=== PATIENT | male | born 1980 | race Caucasian/White ===

== ENCOUNTER 2023-05-29 09:38 | Emergency (ER) | payer OTHER, SELFPAY ==
--- NOTE | ~2023-05-29 | XR_ITS ---
EXAMINATION: XR hand LT min 3V DATE: 05/29/2023 10:21 INDICATION: Left hand injury and pain. TECHNIQUE: 3 views of left hand were obtained. COMPARISON: None. FINDINGS: Bone alignment is normal. No acute fracture. There is an old healed fracture of fifth metac arpal. There is mild osteoarthritis of first metacarpophalangeal joint and first interphalangeal join t. IMPRESSION: 1. No acute fracture. Reviewed, dictated and finalized at location E. IMPRESSION: 1. No acute fracture.
--- NOTE | ~2023-05-29 | XR_ITS ---
EXAMINATION: XR wrist LT min 3V DATE: 05/29/2023 10:21 INDICATION: Left wrist injury and pain. TECHNIQUE: 4 views of left wrist were obtained. COMPARISON: None. FINDINGS: Bone alignment is normal. No acute fracture. There is an old healed fracture of fifth metac arpal. Joint spaces are normal. IMPRESSION: 1. No acute fracture. Reviewed, dictated and finalized at location E. IMPRESSION: 1. No acute fracture.
--- NOTE | ~2023-05-29 | XR_ITS ---
EXAMINATION: 1. XR hand RT min 3V 2. XR wrist RT min 3V DATE: 05/29/2023 10:21 INDICATION: Right wrist and hand pain. TECHNIQUE: 3 views of right hand and 4 views of right wrist were obtained. COMPARISON: None. FINDINGS: RIGHT HAND: Bone alignment is normal. There is a nondisplaced fracture of distal radius. There are ol d healed fractures of first and fifth metacarpals. There is mild osteoarthritis of triscaphe joint, f irst, fourth, and fifth carpometacarpal joints, and some of the interphalangeal joints. There is mode rate osteoarthritis of first metacarpophalangeal joint. There is a calcification palmar to base of fo urth middle phalanx. RIGHT WRIST: Bone alignment is normal. There is a fracture of distal radius with involvement of the d istal articular surface in near-anatomic alignment. There is mild osteoarthritis of radiolunate joint . IMPRESSION: 1. Nondisplaced fracture of distal radius. 2. Polyarticular osteoarthritis. 3. Calcification palmar to base of fourth middle phalanx which may be an acute avulsion fracture or a chronic finding. Correlate for focal tenderness. Reviewed, dictated and finalized at location E. IMPRESSION: 1. Nondisplaced fracture of distal radius. 2. Polyarticular osteoarthritis. 3. Calcification palmar to base of fourth middle phalanx which may be an acute avulsion fracture or a chronic finding. Correlate for focal tenderness.
--- NOTE | ~2023-05-29 | XR_ITS ---
EXAMINATION: XR forearm RT 2V DATE: 05/29/2023 10:20 INDICATION: Right wrist pain. TECHNIQUE: 2 views of right forearm were obtained. COMPARISON: None. FINDINGS: Bone alignment is normal. There is a nondisplaced fracture of distal radius involving the d istal articular surface. There is mild osteoarthritis of triscaphe joint and first carpometacarpal livia int. 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 No elbow joint effusion. IMPRESSION: 1. Fracture of distal radius. Reviewed, dictated and finalized at location E.
[2023-05-29 09:40] VITALS: BP 143/90; PULSE 83; RESP 18; TEMP 36.9; O2SAT 98
[2023-05-29] MEDS: KETOROLAC (*BKC) 60 MG/2 ML VIAL IM (09:59)
[2023-05-29] MEDS: TETANUS,DIPHTHERIA,AC PERTUSSIS ADULT 0.5 ML (ADACEL) IM (09:59)
--- NOTE | 2023-05-29 10:46 | ED.UPPEXIN ---
HPI - Extremity Injury (Upper) General Chief Complaint: Extremity Injury, Upper Stated Complaint: hand injury Time Seen by Provider: 05/29/23 09:46 Source: patient and family Mode of arrival: ambulatory Limitations: no limitations History of Present Illness HPI narrative: this is 42 year male that presents with bilateral hand and right forearm pain after he had a episode of bingeing on take chemo and inadvertently started punching a tree causing abrasions to knuckles on both hands with swelling, the right hand and wrist and forearm show more prominent swelling and bruising, with some good range of motion although limited secondary to swelling and pain. No numbness or tingling has good brisk radial pulse bilaterally with no other injuries. MD complaint: injury to: left and right Onset (ago): day(s) Handedness: right Place: outdoors Severity: moderate Severity scale (1-10): 8 Relieving factors: immobilization and medication Exacerbating factors: movement of extremity Context: direct blow Associated symptoms: denies other symptoms Related Data Allergies Allergy/AdvReac Type Severity Reaction Status Date / Time No Known Drug Allergies Allergy Other Verified 05/29/23 09:44 Review of Systems Review of Systems: All systems reviewed & are unremarkable except as noted in HPI and below PMFSH Past Medical History Medical History Alcohol abuse Exam Const: General: healthy appearing and no acute distress Nutritional Appearance: well nourished Resp: Effort & Inspection: normal respiratory effort Auscultation: clear to auscultation bilaterally Cardio: Rate: regular rate Rhythm: regular rhythm GI: GI Palp: Yes Soft to palpation Auscultation: normal bowel sounds Skin: Wounds: wounds noted Other: abrasions on knuckles bilateral hands Neuro: General: patient oriented x3 and moves all extremities Extrem: Other: swelling bilateral hands, the right has more swelling in the hand wrist and forearm area Course Course Emergency Course: patient received Toradol 60mg IM which has an approved to his pain, up-to-date with Adacel given and x-rays performed show a near anatomic alignment of fracture of the right distal radius. Splint was applied. Vital Signs Vital signs: Vital Signs Temperature 36.9 C 05/29/23 09:40 Pulse Rate 83 05/29/23 09:40 Respiratory Rate 18 05/29/23 09:40 Blood Pressure 143/90 H 05/29/23 09:40 Pulse Oximetry 98 05/29/23 09:40 Oxygen Delivery Room Air 05/29/23 09:40 Temperature 36.9 C 05/29/23 09:40 Pulse Rate 83 05/29/23 09:40 Respiratory Rate 18 05/29/23 09:40 Blood Pressure 143/90 H 05/29/23 09:40 Pulse Oximetry 98 05/29/23 09:40 Oxygen Delivery Room Air 05/29/23 09:40 Critical Care Time Critical Care Time Critical Care Time: No Discharge Plan Discharge Clinical Impression: Fracture of wrist Qualifiers: Encounter type: initial encounter Fracture type: closed Laterality: right Qualified Code(s): S62.101A - Fracture of unspecified carpal bone, right wrist, initial encounter for closed fracture Patient Disposition: Home, Self-Care Condition: Stable Instructions: Antibiotic Form, Wrist Fracture in Adults (ED), Splint Care (ED) Additional Instructions: advised take medicine as prescribed and follow-up with Primary/ Ortho for further evaluation and treatment Within the next week. Prescriptions: New tramadol 50 mg tablet 50 mg PO Q6H PRN (Reason: pain) Qty: 20 0RF Follow-up/Referrals: UNKNOWN,DOCTOR [Primary Care Provider] - Time of Disposition: 10:53
[2023-05-29 11:05] VITALS: BP 136/89; PULSE 78; RESP 16; TEMP 36.5; O2SAT 100
== END 2023-05-29 11:05 | disposition home or self-care (01) ==
PROVIDERS: Emergency Provider Emergency Medicine
DX: S62.101A Fracture of unspecified carpal bone, right wrist, initial encounter for closed fracture (principal); Z23 Encounter for immunization; W22.09XA Striking against other stationary object, initial encounter
CPT/HCPCS: 29125; 73090; 73110; 73130; 90471; 90715; 96372; 99284; J1885